=== PATIENT | male | born 1980 | race Caucasian/White ===

== ENCOUNTER 2017-02-01 18:26 | Emergency (ER) | payer MEDICAID ==
[2017-02-01 21:33] VITALS: BP 140/94
== END 2017-02-01 22:51 | disposition left against medical advice (07) ==
LOC: ED 18:26
DX: Z53.21 Procedure and treatment not carried out due to patient leaving prior to being seen by health care provider (principal)
CPT/HCPCS: 99282

== ENCOUNTER 2023-10-23 15:07 | Outpatient (CLI) | payer MEDICAID, OTHER ==
--- NOTE | 2023-10-23 17:17 | XRAY Report ---
PROCEDURE: Ankle 3+V RT INDICATIONS: SPRAIN OF OTHER LIGAMENT OF RIGHT ANKLE TECHNIQUE: 3 views of the ankle were acquired. COMPARISON: None. FINDINGS: Bones: No fractures or dislocations. Ankle mortise is normally aligned. No suspicious bony lesions . Soft tissues: No tibiotalar joint effusion. Achilles tendon appears normal. Soft tissue swelling o fei the lateral malleolus. IMPRESSION: No acute bony abnormality. If pain persists with conservative management, consider repeat x-ray in 10 -14 days or cross-sectional imaging. Reviewed by: Tang Ruiz MD on 10/23/2023 5:16 PM PDT Approved by: Tang Ruiz MD on 10/23/2023 5:16 PM PDT Station ID: [id number]
== END 2023-10-23 23:59 | disposition home or self-care (01) ==
LOC: DI.N 15:07
PROVIDERS: ATTEND Physician Assistant Medical
DX: S93.491A Sprain of other ligament of right ankle, initial encounter (principal)